=== PATIENT | male | born 1965 | race Caucasian/White ===

== ENCOUNTER 2019-11-22 08:53 | Emergency (ER) | payer OTHER, SELFPAY ==
--- NOTE | 2019-11-22 08:55 | ED.UPPEXIN ---
HPI - Extremity Injury (Upper) General Chief Complaint: Wound/Laceration Stated Complaint: INJURY TO LEFT WRIST Time Seen by Provider: 11/22/19 08:54 Source: patient Mode of arrival: Ambulatory Limitations: no limitations History of Present Illness HPI narrative: This is a 54-year-old male who comes in with injury to his left wrist. Patient was using a saw when it ran across top of his wrist patient states that he washed it out immediately, he denies any numbness tingling. He has full range of motion. He does not think his tetanus up-to-date. Patient states that it bled initially but has since stopped. He denies any other medical issues. He denies any allergies to medications. Related Data Previous Rx's Medication Instructions Recorded cephalexin [Keflex] 500 mg PO QID #28 cap 11/22/19 Allergies Allergy/AdvReac Type Severity Reaction Status Date / Time No Known Drug Allergies Allergy Verified 11/22/19 08:59 Review of Systems Review of Systems ROS Unobtainable: All systems reviewed & are unremarkable except as noted in HPI and below Exam Narrative Exam Narrative: GENERAL: Alert and oriented x three, well-nourished male in mild distress HEENT: Head normocephalic, atraumatic, EOMI, pupils reactive, face symmetric, moist mucous membranes NECK: Supple, full range of motion EXTREMITIES: Normal range of motion, no clubbing or edema. Neurovascularly intact. 2+ radial pulse. Patient has a laceration across the posterior wrist that is 3.2cm in length, it is in the subcutaneous tissue but no tendon or bony involvement is noted. It does gape about a half to 0.25 cm. Overhead Irrigator is equal bilaterally. Patient has full range of motion of his fingers with flexion and extension and also flex/ext and rotation at wrist. NEUROLOGICAL: Cranial nerves II through XII grossly intact. Moving all extremities SKIN: Warm, dry, no petechiae, no rashes or lesions other than noted above. Initial Vital Signs Initial Vital Signs: Vital Signs Temperature 97.7 F 11/22/19 08:57 Pulse Rate 59 L 11/22/19 08:57 Respiratory Rate 12 11/22/19 08:57 Blood Pressure 165/104 H 11/22/19 08:57 Pulse Oximetry 99 11/22/19 08:57 Procedures Laceration Repair Laceration 1: Site: upper extremity (wrist) Side (If applicable): left Size (cm): 3.4 Description: linear Depth: simple, single layer Local Anesthetic: lidocaine 1% Amount of anesthesia used (mL): 3.5 Pre-repair: wound explored, irrigated extensively and deep structures intact Skin layer closed with: nylon Size (cm): 4-0 Number of sutures: 6 Technique: simple, interrupted Course Orders Ordered: Discontinued Medications Diphtheria/Tetanus/Acell Pertussis (Adacel) 0.5 ml IM .ONCE ONE Stop: 11/22/19 08:59 Last Admin: 11/22/19 09:06 Dose: 0.5 ml Documented by: RADHA Lidocaine/Sodium Bicarbonate (Buffered Lidocaine 10 Ml Syr) 10 ml INJ NOW ONE Stop: 11/22/19 08:59 Last Admin: 11/22/19 09:07 Dose: 10 ml Documented by: RADHA Vital Signs Vital signs: Vital Signs - 8 hr 11/22/19 08:57 Temperature 97.7 F Pulse Rate 59 L Respiratory Rate 12 Blood Pressure 165/104 H Pulse Oximetry 99 MDM - Extremity Injury (Upper) MDM Narrative Medical decision making narrative: verbal consent was obtained. Patient does not have any tendon or deeper involvement noted, nvi. abx given as patient did not have visibly dirty wound but was working with saw prior to care. Patient has splint at home that he will use to prevent sutures from breaking. Discharge Plan Departure Patient Disposition: Home Clinical Impression: Laceration of left wrist Qualifiers: Encounter type: initial encounter Qualified Code(s): S61.512A - Laceration without foreign body of left wrist, initial encounter Discharge Date/Time: 11/22/19 09:54 Instructions: DI for Laceration Repair Activity Restrictions/Additional Instructions: You may take Tylenol and/or ibuprofen as needed for pain. Take antibiotics as prescribed until gone. Wound Care: Keep wound(s) clean and dry. Wash daily with soap and water only. Do not use over the counter products (alcohol or peroxide)on the wounds unless instructed by a physician. If wound condition worsens (increased/expanding redness, developing fluid blisters, or worsening pain), either contact your doctor for an urgent re-assessment , or return to the Emergency Department. Return to the Emergency Department for any new or worsening symptoms. Return to the ED, urgent care, or vist a primary care doctor for removal or suture or hair in 7-10 day. Return if fever greater than 100.4 Fahrenheit, increased swelling, increasing pain or worsening symptoms such as increased discharge or spreading redness. 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 Prescriptions: New cephalexin [Keflex] 500 mg capsule 500 mg PO QID Qty: 28 RF: 0
[2019-11-22 08:57] VITALS: BP 165/104; PULSE 59; RESP 12; TEMP 36.5; O2SAT 99; BMI 26.9
[2019-11-22] MEDS: TET,DIPH,PERTUSS(ACELL),VAC/PF 0.5 ML SYRINGE IM (09:06)
[2019-11-22] MEDS: LIDO 1%/SOD BICARB 8.4% (10ML) 10 ML SYRINGE INJ (09:07)
== END 2019-11-22 09:54 | disposition home or self-care (01) ==
LOC: ED 09:47
PROVIDERS: Emergency Provider Emergency Medicine
DX: S61.512A Laceration without foreign body of left wrist, initial encounter (principal); W29.3XXA Contact with powered garden and outdoor hand tools and machinery, initial encounter; Z23 Encounter for immunization
CPT/HCPCS: 12002; 90471; 99283; 90715

== ENCOUNTER → 2021-09-16 16:01 | Outpatient (CLI) | payer OTHER, SELFPAY ==
--- NOTE | 2021-09-16 | DI.RAD.S_ITS ---
PROCEDURE: XR HAND RT MIN 3V INDICATIONS: RIGHT HAND PAIN TECHNIQUE: 3 views of the hand(s) acquired. COMPARISON: None. FINDINGS: Bones: 5th metacarpal head is medially angulated. In addition, there is a slight angulated appearance of the 4th metacarpal head although less prominent. Soft tissues: No suspicious soft tissue calcifications. IMPRESSION: 5th metacarpal head angulation suggestive of prior fracture. No remote exams are available for comparison. Recommend correlation to point tenderness if there is a history of recent trauma as superimposed small subacute fracture cannot be definitively excluded. As indicated, short interval imaging follow-up in 7-[address] is recommended. Slight angulation of the 4th metacarpal head most suggestive of remote injury. Dictated by: Peri Larsen M.D. on 09/16/2021 at 17:41 Approved by: Peri Larsen M.D. on 09/16/2021 at 17:44
== END ==
PROVIDERS: PCP Student in an Organized Health Care Education/Training Program; Referring Provider Student in an Organized Health Care Education/Training Program; Visit Provider Student in an Organized Health Care Education/Training Program
DX: M79.641 Pain in right hand (principal)
CPT/HCPCS: 73130

== ENCOUNTER 2022-01-04 12:17 | Emergency (ER) | payer OTHER, SELFPAY ==
[2022-01-04 12:27] VITALS: BP 196/106; PULSE 61; RESP 15; TEMP 35.8; O2SAT 99; BMI 29.9
--- NOTE | 2022-01-04 12:30 | DI.RAD.S_ITS ---
PROCEDURE: XR SHOULDER RT MIN 2V INDICATIONS: dislocated shoulder TECHNIQUE: 3 views of the shoulder were acquired. COMPARISON: None. FINDINGS: Bones: Anterior shoulder dislocation is seen. On 1 image, there is a potential bony Bankart fracture. Age-appropriate bony degenerative changes are seen. The visualized ribs appear intact. Soft tissues: No suspicious soft tissue calcifications. The visualized lung demonstrates an unremarkable appearance. IMPRESSION: Anterior shoulder dislocation, with potential associated bony Bankart fracture. Dictated by: Dave Davenport M.D. on 01/04/2022 at 11:55 Approved by: Dave Davenport M.D. on 01/04/2022 at 11:55
--- NOTE | 2022-01-04 13:11 | ED_ITS ---
HPI - Extremity Injury (Upper) <RONY Loza - Last Filed: 01/04/22 19:40> General Chief Complaint: Extremity Injury, Upper Stated Complaint: Right shoulder pain Dislocation Time Seen by Provider: 01/04/22 13:01 Source: patient Mode of arrival: Ambulatory History of Present Illness HPI narrative: This is a 56-year-old male who presents to the emergency department 1 hour after falling off of a ladder complaining of right shoulder pain. Patient denies any history of shoulder dislocation in the past, states that this happened 1 hour ago, has not had any medication prior to his arrival. He complains of numbness in his deltoid, denies any numbness all the way down his arm. Patient denies any other injury, has an abrasion on his finger but states that he landed directly on his shoulder. He denies any head pain, neck pain, denies any loss of consciousness, denies any nausea vomiting, denies any significant medical history or allergies. States that he feels like it is dislocated. Related Data Previous Rx's Medication Instructions Recorded cephalexin 500 mg capsule (Keflex) 500 mg PO QID #28 cap 11/22/19 hydrocodone 5 mg-acetaminophen 325 1 tab PO BID PRN #14 tab 01/04/22 mg tablet methocarbamol 500 mg tablet 500 mg PO Q8H PRN #20 tab 01/04/22 Allergies Allergy/AdvReac Type Severity Reaction Status Date / Time No Known Drug Allergies Allergy Verified 01/04/22 12:27 Review of Systems <RONY Loza - Last Filed: 01/04/22 19:40> Review of Systems Narrative: General: denies fever, chills Head/Neck: denies headache, neck pain Eyes: denies visual changes, eye pain Cardio: denies chest pain, palpitations Respiratory: denies shortness of breath, cough GI: denies abdominal pain, nausea, vomiting, or diarrhea MSK: Endorses significant right shoulder pain, deltoid numbness, denies any muscle weakness or open wound. Skin: denies rash, itching or wound Neuro: denies numbness, tingling, dizziness Patient History <RONY Loza - Last Filed: 01/04/22 19:40> Social History Smoking Status: Current every day smoker Smoking Status: Current every day smoker alcohol intake frequency: holidays/special occasions only Substance Use Type: marijuana Exam <RONY Loza - Last Filed: 01/04/22 19:40> Narrative Exam Narrative: Independently reviewed vitals signs and nursing notes. General: cooperative, comfortable, in no acute distress, well groomed Head: atraumatic, symmetrical facial expressions Neck: supple Eyes: equal round and reactive, EOMI, conjunctiva normal Nose: nares patent, no rhinorrhea Mouth/Throat: moist mucus membranes Cardiovascular: regular rate and rhythm, no peripheral edema, warm extremities Respiratory: normal effort, able to speak in complete sentences, no audible wheezing, stridor, or rales. No retractions or tachypnea. GI: abdomen soft, nontender to palpation, nondistended, no masses, no exquisite tenderness with exam, without guarding or rebound. MSK: Right shoulder is anterior dislocated, patient endorses numbness to his right deltoid, denies any numbness distally, radial pulses 2+ and palpable, brisk cap refill, patient able to move his arm, complains of pain with all movements Skin: brisk capillary refill, no rash, no erythema Neuro: normal speech and cognition, A&O x3 Psych: mental status is grossly normal, congruent mood, normal affect, pleasant and cooperative Initial Vital Signs Initial Vital Signs: Vital Signs Temperature 96.4 F L 01/04/22 12:27 Pulse Rate 61 01/04/22 12:27 Respiratory Rate 15 01/04/22 12:27 Blood Pressure 196/106 H 01/04/22 12:27 Pulse Oximetry 99 01/04/22 12:27 <Kirill Ruvalcaba DO - Last Filed: 01/09/22 03:43> Initial Vital Signs Initial Vital Signs: Vital Signs Temperature 96.4 F L 01/04/22 12:27 Pulse Rate 61 01/04/22 12:27 Respiratory Rate 15 01/04/22 12:27 Blood Pressure 196/106 H 01/04/22 12:27 Pulse Oximetry 99 01/04/22 12:27 Procedures <RONY Loza - Last Filed: 01/04/22 19:40> Orthopedic Joint Reduction Joint #1: Time Out Performed: Yes Side: right Joint Reduction Location: shoulder Analgesia: none Shoulder Technique Used (if applicable): traction/counter-traction, scapula manipulation, external rotation and Milch Technique used: traction/counter-traction Post-reduction neuro exam: intact and no change Post-reduction vascular: intact Post Reduction X-Ray Obtained: Yes Post Reduction X-Ray Results: reduced Splint Applied: Yes Patient Tolerated Procedure: Well Additional Comments: reduction performed by Dr. Ruvalcaba with my assistance. Orthopedic Splinting/Casting Injury #1: Side: right Upper Extremity Injury Location: shoulder Upper Extremity Immobilizer: sling/shoulder immobilizer Post splinting neuro exam: intact and no change Post splinting vascular exam: intact Placed by: Provider Course <RONY Loza - Last Filed: 01/04/22 19:40> Orders Ordered: Discontinued Medications Methocarbamol (Methocarbamol 500 Mg Tablet) 500 mg PO NOW ONE Stop: 01/04/22 13:12 Last Admin: 01/04/22 13:30 Dose: 500 mg Documented by: SHENA Ondansetron HCl (Ondansetron 4 Mg Odt) 4 mg SL NOW ONE Stop: 01/04/22 13:11 Last Admin: 01/04/22 13:30 Dose: 4 mg Documented by: SHENA Oxycodone/Acetaminophen (Oxycodone/Acetaminophen 5/325 Tablet) 1 tab PO NOW ONE Stop: 01/04/22 13:11 Last Admin: 01/04/22 13:30 Dose: 1 tab Documented by: SHENA Vital Signs Vital signs: Vital Signs - 8 hr 01/04/22 12:27 Temperature 96.4 F L Pulse Rate 61 Respiratory Rate 15 Blood Pressure 196/106 H Pulse Oximetry 99 <Kirill Ruvalcaba DO - Last Filed: 01/09/22 03:43> Orders Ordered: Discontinued Medications Methocarbamol (Methocarbamol 500 Mg Tablet) 500 mg PO NOW ONE Stop: 01/04/22 13:12 Last Admin: 01/04/22 13:30 Dose: 500 mg Documented by: SHENA Ondansetron HCl (Ondansetron 4 Mg Odt) 4 mg SL NOW ONE Stop: 01/04/22 13:11 Last Admin: 01/04/22 13:30 Dose: 4 mg Documented by: SHENA Oxycodone/Acetaminophen (Oxycodone/Acetaminophen 5/325 Tablet) 1 tab PO NOW ONE Stop: 01/04/22 13:11 Last Admin: 01/04/22 13:30 Dose: 1 tab Documented by: SHENA Vital Signs Vital signs: Vital Signs - 8 hr 01/04/22 12:27 Temperature 96.4 F L Pulse Rate 61 Respiratory Rate 15 Blood Pressure 196/106 H Pulse Oximetry 99 MDM - Extremity Injury (Upper) <Viviana Card BONDING MOLDER - Last Filed: 01/04/22 19:40> Imaging Data Extremity x-ray #1: Radiologist's Impression: PROCEDURE:? XR SHOULDER RT MIN 2V ? INDICATIONS:? dislocated shoulder ? TECHNIQUE:? 3 views of the shoulder were acquired.? ? COMPARISON:? None. ? FINDINGS:? ? Bones:? Anterior shoulder dislocation is seen. ? On 1 image, there is a potential bony Bankart fracture. ? Age-appropriate bony degenerative changes are seen.? The visualized ribs appear intact. ? ? ? Soft tissues:? No suspicious soft tissue calcifications.? The visualized lung demonstrates an unremarkable appearance. ? ? IMPRESSION:? Anterior shoulder dislocation, with potential associated bony Bankart fracture. ? ? Dictated by: Dave Davenport M.D. on 01/04/2022 at 11:55 ? ? Approved by: Dave Davenport M.D. on 01/04/2022 at 11:55 ? Extremity x-ray #2: My Impression: Post reduction rt shoulder Radiologist's Impression: PROCEDURE:? XR SHOULDER RT 1V ? INDICATIONS:? post reduction ? TECHNIQUE:? 1 views of the shoulder were acquired.? ? COMPARISON:? [facility], , XR SHOULDER RT MIN 2V, 01/04/2022, 12:19. ? FINDINGS:? ? Bones:? Relocation of the right glenohumeral joint.? No fracture identified.? Mild degenerative change at the AC joint.? No suspicious bony lesions.? Visualized ribs appear intact.? ? Soft tissues:? No suspicious soft tissue calcifications.? ? IMPRESSION:? Relocation of the right shoulder. ? Patient would likely benefit from follow-up shoulder MRI. ? ? Dictated by: German Silverman M.D. on 01/04/2022 at 14:06 ? ? Approved by: German Silverman M.D. on 01/04/2022 at 14:08 ? [facility] Narrative Medical decision making narrative: This is a 56-year-old male who presents to the emergency department after falling off of a ladder in complaining of right shoulder pain. Patient states that he has never dislocated his shoulder before, denies hitting his head, complains of 10/10 right shoulder pain and right deltoid numbness. On exam, he has a neurovascularly intact anterior shoulder dislocation, on x-ray of his right shoulder, he has an anterior shoulder dislocation with potential associated finger fracture. Patient was given Percocet, methocarbamol, and with relaxation techniques and gentle manipulation after about 15 minutes of traction/counter traction, external rotation and scapular manipulation, successful reduction of right shoulder was completed without anesthesia. Patient tolerated well. He was placed in a sling immediately after, neurovascularly intact, patient reports great relief in his pain, he understands to follow-up with orthopedics, he was given a prescription of hydrocodone, methocarbamol and encouraged to use ice and rest for the next few days. Patient is appropriate and amenable to discharge home. Vital signs are stable on repeat examination is unremarkable. Patient has been informed of results. Patient has been given strict return to ER precautions for any new or worsening symptoms. Patient understands to follow up closely with outpatient providers as instructed. Patient understands plan and agrees to discharge home. All questions and concerns answered at this time. Discharge Plan Departure Patient Disposition: Home Clinical Impression: Anterior dislocation of right shoulder Qualifiers: Encounter type: initial encounter Qualified Code(s): S43.014A - Anterior dislocation of right humerus, initial encounter Bankart variant lesion of right shoulder Qualifiers: Encounter type: initial encounter Qualified Code(s): S43.491A - Other sprain of right shoulder joint, initial encounter Instructions: Shoulder Dislocation Activity Restrictions/Additional Instructions: *You have been diagnosed with a right shoulder anterior dislocation with successful reduction. Please wear the sling for as long as you are out of the house, and for the next few days until you can follow-up with [facility]. You may call Dr. Campos or set up a follow-up appointment to get a referral for physical therapy. I highly recommend this as this may help you avoid surgery if there is significant injury within your joint. I am glad we w ere able to get this back into its place for you. Please follow-up with orthopedics or Dr. Campos before returning back to work, you may practice gentle range of motion but do not do any external rotation of your shoulder or put your shoulder above your head for the next few days. Thank you for trusting us with your care, I hope that you feel better now and please return for any worsening issues. *What to do: *Please continue to take your regular medications as directed. [ ] New medication prescriptions sent to your pharmacy: [ ] [ ] New medication written as a paper prescription [ ] No new medications given *Please follow up with your primary care provider in 2-3 days, call for an appointment. Let them know you were seen in the Emergency Department and that we asked that you be seen for follow-up. We will electronically transmit a record of today's note if your PCP is in our system *If you do not have a primary care provider please contact [phone] to establish care with one of the [facility] primary care providers. *Return to Emergency Department if you should have any new, worsening or concerning symptoms, such as [fever greater than 101F, chills, worsening pain, persistent vomiting or other bothersome symptoms] Prescriptions: New hydrocodone-acetaminophen 5-325 mg tablet 1 tab PO BID PRN (Reason: pain) Qty: 14 0RF methocarbamol 500 mg tablet 500 mg PO Q8H PRN (Reason: muscle spasm) Qty: 20 0RF Rx Instructions: These will make you sleepy, especially if you combine them with hydrocodone, please do not drive while taking either medication, eat food and drink water. No Action cephalexin [Keflex] 500 mg capsule 500 mg PO QID Qty: 28 0RF Referrals: [facility] [Provider Group] - 3-5 days Carol Campos MD [Primary Care Provider] - <Kirill Ruvalcaba DO - Last Filed: 01/09/22 03:43> [facility]: I was immediately available in the department for consultation. This documentation has been reviewed and I agree with assessment and plan. Supervised by Kirill Ruvalcaba DO
[2022-01-04] MEDS: methocarbamoL 500 MG TABLET PO (13:30)
[2022-01-04] MEDS: OXYCODONE/ACETAMINOPHEN 5/325 TABLET 1 TAB PO (13:30)
[2022-01-04] MEDS: ONDANSETRON 4 MG ODT SL (13:30)
--- NOTE | 2022-01-04 13:52 | DI.RAD.S_ITS ---
PROCEDURE: XR SHOULDER RT 1V INDICATIONS: post reduction TECHNIQUE: 1 views of the shoulder were acquired. COMPARISON: [facility], CR, XR SHOULDER RT MIN 2V, 01/04/2022, 12:19. FINDINGS: Bones: Relocation of the right glenohumeral joint. No fracture identified. Mild degenerative change at the AC joint. No suspicious bony lesions. Visualized ribs appear intact. Soft tissues: No suspicious soft tissue calcifications. IMPRESSION: Relocation of the right shoulder. Patient would likely benefit from follow-up shoulder MRI. Dictated by: German Silverman M.D. on 01/04/2022 at 14:06 Approved by: German Silverman M.D. on 01/04/2022 at 14:08
== END 2022-01-04 14:08 | disposition home or self-care (01) ==
PROVIDERS: Emergency Provider Nurse Practitioner Critical Care Medicine; PCP Student in an Organized Health Care Education/Training Program
DX: S43.014A Anterior dislocation of right humerus, initial encounter (principal); S43.491A Other sprain of right shoulder joint, initial encounter; W11.XXXA Fall on and from ladder, initial encounter
CPT/HCPCS: 24505; 73020; 73030; 99283

== ENCOUNTER → 2022-03-06 08:41 | Outpatient (CLI) | payer OTHER, SELFPAY | PROVIDERS: PCP Family Medicine; Referring Provider Family Medicine; Visit Provider Family Medicine | DX: M25.511 Pain in right shoulder (principal); Z53.20 Procedure and treatment not carried out because of patient's decision for unspecified reasons ==

== ENCOUNTER → 2022-03-20 08:55 | Outpatient (CLI) | payer OTHER, SELFPAY | PROVIDERS: PCP Family Medicine; Referring Provider Family Medicine; Visit Provider Family Medicine | DX: M25.511 Pain in right shoulder (principal); Z53.20 Procedure and treatment not carried out because of patient's decision for unspecified reasons ==